=== PATIENT | male | born 1985 | race Caucasian/White ===

== ENCOUNTER 2018-05-26 00:13 | Emergency (ER) | payer OTHER ==
[2018-05-26 02:57] VITALS: BP 118/71; PULSE 84; TEMP 98.1; BMI 36.0
[2018-05-26] MEDS ORDERED: diazePAM CARPU-JECT 10 MG/2 ML DISP.SYRIN IM ONE (03:13)
[2018-05-26] MEDS ORDERED: KETOROLAC TROMETHAMINE 30 MG/1 ML VIAL IM ONE (03:13)
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
[2018-05-26] MEDS ORDERED: KETOROLAC TROMETHAMINE 30 MG/1 ML VIAL ONE (03:14)
[2018-05-26] MEDS ORDERED: diazePAM 5 MG TABLET ONE (03:14)
--- NOTE | 2018-05-26 03:14 | PDOC ---
*Physical Exam - Vital Signs Last Vital Signs Temp Pulse Resp BP Pulse Ox 98.1 F 84 19 118/71 98 05/26/18 00:35 05/26/18 00:35 05/26/18 00:35 05/26/18 00:35 05/26/18 00:35 Medical Decision Making - Medical Decision Making 05/26/18 03:14 agree with care from RACHEL Garner *DC/Admit/Observation/Transfer Diagnosis at time of Disposition: Musculoskeletal pain - Discharge Dispostion Disposition: HOME Condition at time of disposition: Fair - Prescriptions Prescriptions: Cyclobenzaprine HCl [Flexeril -] 10 mg PO TID PRN #21 tablet PRN Reason: Muscle Spasms Ibuprofen 600 mg PO QID PRN #20 tablet PRN Reason: Back Pain - Referrals - Patient Instructions Printed Discharge Instructions: Muscle Strain Additional Instructions: apply Apply ice or heat to the area take ibuprofen as prescribed. Take Flexeril us as prescribed Follow up with you doctor as soon as possible - Post Discharge Activity Forms/Work/School Notes: Back to Work
== END 2018-05-26 05:18 | disposition home or self-care (01) ==
LOC: JER 00:13
PROC: 3E033NZ Introduction of Analgesics, Hypnotics, Sedatives into Peripheral Vein, Percutaneous Approach (ICD-10-PCS; principal; 2018-05-26)
PROC: 3E0333Z Introduction of Anti-inflammatory into Peripheral Vein, Percutaneous Approach (ICD-10-PCS; 2018-05-26)
DX: M54.2 Cervicalgia (principal); V49.59XA Passenger injured in collision with other motor vehicles in traffic accident, initial encounter; Y92.488 Other paved roadways as the place of occurrence of the external cause; Y93.89 Activity, other specified; Y99.8 Other external cause status
CPT/HCPCS: 99281-25